=== PATIENT | female | born 1985 | race Caucasian/White ===

== ENCOUNTER 2023-05-27 19:04 | Outpatient (REF) | payer MEDICAID, SELFPAY ==
[2023-05-30 03:53] LABS: HPV mRNA E6/E7 rflx Not Detected (Not Detected)
== END 2023-05-27 19:05 | disposition home or self-care (01) ==
LOC: HO.CHCLNP 19:04
PROVIDERS: Visit Provider Advanced Practice Midwife
DX: Z01.419 Encounter for gynecological examination (general) (routine) without abnormal findings (principal)
CPT/HCPCS: 87624; 88142